=== PATIENT | female | born 1950 | race Caucasian/White ===

== ENCOUNTER 2022-06-16 16:57 | Emergency (ER) | payer MEDICARE, SELFPAY ==
[2022-06-16 17:08] VITALS: BP 88/53; PULSE 97; RESP 18; TEMP 37; O2SAT 100
--- NOTE | 2022-06-16 17:25 | ED.URI ---
HPI - URI/Sore Throat General Chief Complaint: Upper Respiratory Infection Stated Complaint: Congestion/Body Aches Time Seen by Provider: 06/16/22 17:25 Source: patient and RN notes reviewed History of Present Illness HPI Narrative: Patient is 71-year-old female who presents the urgent care with her spouse with complaints of congestion, body aches, cough, chills. Patient states that started Thursday and she has been taking flu medication and Vicks [id number]. Patient denies any fever, nausea or vomiting. Patient states that she has had COVID in the past and COVID is not her concern at this time. No other acute complaints. No acute distress noted. Patient and spouse aware of the plan of care. Some parts of this dictation were generated by voice recognition software and may contain typographical and/or grammatical inaccuracies. Related Data Home Medications Medication Instructions Recorded Confirmed ezetimibe 10 mg tablet mg 06/16/22 hydrochlorothiazide 12.5 mg capsule mg 06/16/22 lisinopril 20 mg tablet mg 06/16/22 metoprolol succinate 25 mg mg PO 06/16/22 tablet,extended release 24 hr omeprazole 20 mg capsule,delayed mg 06/16/22 release rosuvastatin 40 mg tablet mg 06/16/22 ticagrelor 90 mg tablet (Brilinta) mg 06/16/22 Allergies Allergy/AdvReac Type Severity Reaction Status Date / Time codeine AdvReac Nausea and Verified 03/23/13 12:41 Vomiting Review of Systems Review of Systems: CONSTITUTIONAL: Reports of chills and fatigue EYES: Denies visual changes, redness, or discharge. ENT: Reports of sinus congestion and postnasal drainage CARDIOVASCULAR: Denies chest pain, palpitations, or edema. RESPIRATORY: Reports of cough without dyspnea GASTROINTESTINAL: Denies abdominal pain, nausea, vomiting, or diarrhea. GENITOURINARY: Denies dysuria or hematuria. SKIN: Denies rash or itching. MUSCULOSKELETAL: Denies back pain, joint pain. Reports of body aches NEUROLOGIC: Denies headache, numbness, or weakness. All other systems reviewed are negative, except as documented in HPI. PMFSH Comments At the time of my signature, I reviewed and agree with the nursing past medical, surgical, social, and family history. There is no relevant family history pertinent to the patient complaint. Exam Narrative: GENERAL: This is a well-nourished, well-developed patient. Appears fatigued HEAD: normocephalic, atraumatic. EYES: PERRL. Sclera clear/white. Vision is grossly intact. EARS: External ears normal, auditory canals clear and without drainage, TMs normal without perforation. Hearing grossly intact. NOSE: External nose normal with no obvious nasal discharge, nares without redness, clear rhinorrhea. THROAT: Mucous membranes moist, posterior pharynx clear. Moderate postnasal drainage NECK: Neck supple, non-tender without lymphadenopathy, masses or thyromegaly. CARDIOVASCULAR: Regular rate and rhythm RESPIRATORY: Clear to auscultation. Breath sounds equal bilaterally. No wheezes, rales, or rhonchi. SKIN: warm, intact with no suspicious lesions or rash, good texture and turgor. NEURO: awake, alert, and oriented to person, place and time. There were no obvious focal neurologic abnormalities. EXTREMITIES: No clubbing, cyanosis, or edema. Course Course Level of Care: Express Care Visit Vital Signs Vital signs: Vital Signs Temperature 98.6 F 06/16/22 17:08 Pulse Rate 97 06/16/22 17:08 Respiratory Rate 18 06/16/22 17:08 Blood Pressure 88/53 L 06/16/22 17:08 Pulse Oximetry 100 06/16/22 17:08 Oxygen Delivery Room Air 06/16/22 17:08 Temperature 98.6 F 06/16/22 17:31 Pulse Rate 97 06/16/22 17:31 Respiratory Rate 18 06/16/22 17:31 Blood Pressure 88/53 L 06/16/22 17:31 Pulse Oximetry 100 06/16/22 17:31 Oxygen Delivery Room Air 06/16/22 17:31 Reviewed MDM - URI/Sore Throat MDM Narrative Medical decision making narrative: Reviewed lab results with the patient. She is
[2022-06-16 17:31] VITALS: BP 88/53; PULSE 97; RESP 18; TEMP 37; O2SAT 100
== END 2022-06-16 17:50 | disposition home or self-care (01) ==
PROVIDERS: Emergency Provider Nurse Practitioner Family; PCP Internal Medicine
DX: J40 Bronchitis, not specified as acute or chronic (principal); B34.9 Viral infection, unspecified; I25.10 Atherosclerotic heart disease of native coronary artery without angina pectoris; E78.00 Pure hypercholesterolemia, unspecified; I10 Essential (primary) hypertension; K21.9 Gastro-esophageal reflux disease without esophagitis; M81.0 Age-related osteoporosis without current pathological fracture; Z86.16 Personal history of COVID-19; Z95.5 Presence of coronary angioplasty implant and graft
CPT/HCPCS: 87804; 99203; G0463

== ENCOUNTER 2022-07-07 15:47 | Emergency (ER) | payer MEDICARE, SELFPAY ==
[2022-07-07 15:56] VITALS: BP 118/68; PULSE 90; RESP 16; TEMP 36.8; O2SAT 99
--- NOTE | 2022-07-07 15:56 | ED.URI ---
HPI - URI/Sore Throat General Chief Complaint: Upper Respiratory Infection Stated Complaint: Chest Congestion Time Seen by Provider: 07/07/22 15:57 Source: patient and RN notes reviewed History of Present Illness HPI Narrative: Patient is a 71-year-old female who presents to Urgent Care with her with complaints of chest congestion cough. Patient states that it started on Thursday and she has felt much better the last day or 2. Patient states she had a lot of fatigue out . Was mainly concerned about her angioplasty coming up on . 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 Denies any fevers, nausea or vomiting. Denies any shortness of breath or chest pain. Patient is not taking anything but Tylenol [id number]. No other acute complaints. No acute distress noted. Patient aware of the plan of care. Some parts of this dictation were generated by voice recognition software and may contain typographical and/or grammatical inaccuracies. Related Data Home Medications Medication Instructions Recorded Confirmed ezetimibe 10 mg tablet 10 mg PO DAILY 06/16/22 07/07/22 hydrochlorothiazide 12.5 mg capsule 12.5 mg PO DAILY 06/16/22 07/07/22 lisinopril 20 mg tablet 20 mg PO DAILY 06/16/22 07/07/22 metoprolol succinate 25 mg 25 mg PO DAILY 06/16/22 07/07/22 tablet,extended release 24 hr omeprazole 20 mg capsule,delayed 20 mg PO DAILY 06/16/22 07/07/22 release rosuvastatin 40 mg tablet 40 mg PO DAILY 06/16/22 07/07/22 ticagrelor 90 mg tablet (Brilinta) 90 mg PO BID 06/16/22 07/07/22 Allergies Allergy/AdvReac Type Severity Reaction Status Date / Time codeine AdvReac Nausea and Verified 07/07/22 16:16 Vomiting Review of Systems Review of Systems: CONSTITUTIONAL: Denies fever, chills, or sweats. EYES: Denies visual changes, redness, or discharge. ENT: Denies rhinorrhea, congestion, sore throat, or otalgia. CARDIOVASCULAR: Denies chest pain, palpitations, or edema. RESPIRATORY: Reports mild chest congestion without dyspnea GASTROINTESTINAL: Denies abdominal pain, nausea, vomiting, or diarrhea. GENITOURINARY: Denies dysuria or hematuria. SKIN: Denies rash or itching. MUSCULOSKELETAL: Denies back pain, joint pain, or myalgia. NEUROLOGIC: Denies headache, numbness, or weakness. All other systems reviewed are negative, except as documented in HPI. PMFSH Comments At the time of my signature, I reviewed and agree with the nursing past medical, surgical, social, and family history. There is no relevant family history pertinent to the patient complaint. Exam Narrative: GENERAL: This is a well-nourished, well-developed patient, in no apparent distress. HEAD: normocephalic, atraumatic. EYES: PERRL. Sclera clear/white. Vision is grossly intact. EARS: External ears normal, auditory canals clear and without drainage, TMs normal without perforation. Hearing grossly intact. NOSE: External nose normal with no obvious nasal discharge, nares without redness, clear rhinorrhea. THROAT: Mucous membranes moist, posterior pharynx clear. mild postnasal drainage NECK: Neck supple CARDIOVASCULAR: Regular rate RESPIRATORY: Clear to auscultation. Breath sounds equal bilaterally. No wheezes, rales, or rhonchi. SKIN: warm, intact with no suspicious lesions or rash, good texture and turgor. NEURO: awake, alert, and oriented to person, place and time. There were no obvious focal neurologic abnormalities. EXTREMITIES: No clubbing, cyanosis, or edema. Course Course Level of Care: Express Care Visit Vital Signs Vital signs: Vital Signs Temperature 98.3 F 07/07/22 15:56 Pulse Rate 90 07/07/22 15:56 Respiratory Rate 16 07/07/22 15:56 Blood Pressure 118/68 07/07/22 15:56 Pulse Oximetry 99 07/07/22 15:56 Oxygen Delivery Room Air 07/07/22 15:56 Temperature 98.3 F 07/07/22 15:56 Pulse Rate 90 07/07/22 15:56 Respiratory Rate 16 07/07/22 15:56 Blood Pressure 118/68
== END 2022-07-07 16:38 | disposition home or self-care (01) ==
PROVIDERS: Emergency Provider Nurse Practitioner Family; PCP Internal Medicine
DX: R05.9 Cough, unspecified (principal); Z20.822 Contact with and (suspected) exposure to COVID-19; I25.10 Atherosclerotic heart disease of native coronary artery without angina pectoris; Z95.5 Presence of coronary angioplasty implant and graft; E78.00 Pure hypercholesterolemia, unspecified; I10 Essential (primary) hypertension; Z86.16 Personal history of COVID-19; M81.0 Age-related osteoporosis without current pathological fracture
CPT/HCPCS: 87426; 87804; 99213; C9803; G0463

== ENCOUNTER 2022-12-05 19:04 | Emergency (ER) | payer MEDICARE, SELFPAY ==
--- NOTE | ~2022-12-05 | XR_ITS ---
EXAMINATION: XR chest 2V DATE: 12/05/2022 19:40 INDICATION: Shortness of breath and congestion TECHNIQUE: PA and lateral views of the chest are obtained. COMPARISON: None available FINDINGS: The lungs are free of acute opacities. No pleural effusion or pneumothorax. The cardiomedia stinal silhouette is normal. There is moderate thoracic spondylosis. An endoluminal stent is noted in the aortic arch and proximal descending aorta. IMPRESSION: 1. No acute cardiopulmonary abnormality. Reviewed, dictated and finalized at location F.
[2022-12-05 19:11] VITALS: BP 94/50; PULSE 64; RESP 16; TEMP 36.6; O2SAT 97
--- NOTE | 2022-12-05 19:26 | ED.URI ---
HPI - URI/Sore Throat General Chief Complaint: Upper Respiratory Infection Stated Complaint: Chest Congestion Time Seen by Provider: 12/05/22 19:26 Source: patient, RN notes reviewed and old records reviewed Mode of arrival: ambulatory Limitations: no limitations History of Present Illness HPI Narrative: 72 year old female who presents to [facility] care with complaints of chest congestion, cough, nasal congestion for the past 3-4 days with increase chest congestion since last night. Patient reports that she has had some shortness of breath which she noted last night when she laid down.Patient reports that she has taken Robitussin and Benadryl for her symptoms. Patient reports that she does not have any sore throat pain or ear pain. MD elicited complaint: cough, rhinorrhea and nasal congestion Onset (ago): day(s) (3-4 days) Able to tolerate fluids by mouth: Yes Treatments prior to arrival: other (Benadryl and Robitussin) Related Data Home Medications Medication Instructions Recorded Confirmed ezetimibe 10 mg tablet 10 mg PO DAILY 06/16/22 12/05/22 hydrochlorothiazide 12.5 mg capsule 12.5 mg PO DAILY 06/16/22 12/05/22 lisinopril 20 mg tablet 20 mg PO DAILY 06/16/22 12/05/22 metoprolol succinate 25 mg 25 mg PO DAILY 06/16/22 12/05/22 tablet,extended release 24 hr omeprazole 20 mg capsule,delayed 20 mg PO DAILY 06/16/22 12/05/22 release rosuvastatin 40 mg tablet 40 mg PO DAILY 06/16/22 12/05/22 ticagrelor 90 mg tablet (Brilinta) 90 mg PO BID 06/16/22 12/05/22 Allergies Allergy/AdvReac Type Severity Reaction Status Date / Time codeine AdvReac Nausea and Verified 12/05/22 19:51 Vomiting Review of Systems Review of Systems: CONSTITUTIONAL: Denies malaise, chills, sweats, or fever. EYES: Denies visual changes, redness, or discharge. ENT: Reports rhinorrhea, congestion, sinus pain, no otalgia no sore throat. CARDIOVASCULAR: Denies chest pain, palpitations, or edema. RESPIRATORY: Reports cough.? Some dyspnea. GASTROINTESTINAL: Denies abdominal pain, nausea, vomiting, diarrhea SKIN: Denies rash or itching. MUSCULOSKELETAL: reports some myalgia. NEUROLOGIC: Denies headache. All systems reviewed & are unremarkable except as noted in HPI and below PMFSH Past Medical History Medical History (Updated 12/07/22 @ 15:17 by Cele Leon NP) Elevated cholesterol GERD (gastroesophageal reflux disease) Hypertension Osteoporosis Surgical History Surgical History (Updated 12/07/22 @ 15:21 by Cele Leon NP) H/O cardiac catheterization stent History of angioplasty of leg vessels S/P aortic aneurysm repair aortic aneurysm off of heart Social History Social History (Updated 12/05/22 @ 19:55 by Cele Leon NP) Smoking packs per day: 1 Smoking cigarettes per day: 20.0 Years smoked: 30 Smoking pack-years: 30.00 Smoking status: Former smoker Tobacco type: cigarettes Additional smoking assessment comments: quit 2011 Alcohol intake: current Alcohol use details: rare use Substance use type: does not use Living arrangements: with family Gender identity (if verbalized by the patient): Female Comments At time of signature, agree with nursing past medical, surgical, social and family history. There is no relevant family history pertinent to the presenting complaint Exam Narrative: GENERAL: Well-appearing, well-nourished, and in no acute distress. HEAD: Normocephalic EYES: PERRLA, conjunctivae clear ENT: Nares clear, turbinates edematous and erythematous, clear discharge. Mucous membranes moist. TM pearly maurice with dull light reflex bilaterally; no tragal tenderness. Oropharynx erythematous without lesions. Tonsils not enlarged and without exudate, no drooling, no hoarseness, no trismus, uvula midline. NECK: Supple. No lymphadenopathy CHEST: scattered wheezing on auscultation, breath sounds equal.positive wheezing, no rhonchi, rales, or stridor. No respira
== END 2022-12-05 20:30 | disposition home or self-care (01) ==
PROVIDERS: Emergency Provider Registered Nurse; PCP Internal Medicine
DX: J40 Bronchitis, not specified as acute or chronic (principal); I10 Essential (primary) hypertension; Z87.891 Personal history of nicotine dependence
CPT/HCPCS: 71046; 99213; G0463

== ENCOUNTER 2022-12-13 19:28 | Emergency (ER) | payer MEDICARE, SELFPAY ==
[2022-12-13] VITALS (8 sets, daily range): BP systolic 60–112; BP diastolic 40–79; PULSE 60–96; RESP 20; TEMP 37.1; O2SAT 100
--- NOTE | 2022-12-13 19:46 | ED.GENADULT ---
HPI - General Adult General Chief complaint: Unspecified Stated complaint: chest / headache / low BP Time Seen by Provider: 12/13/22 19:46 History of Present Illness HPI narrative: patient here for evaluation of blood pressure. reports low blood pressure at home. repors 40's over the 50's. patient was evaluated by her primary care thursday and her HCTZ was discontinued due to low blood pressure. Patient states she felt woozy earlier in the day but feels much better now. blood pressure 112/79 pulse 74 and regular. Patient denies any chest pain no shortness of breath and no dizziness. Patient reports normal appetite and activity. Related Data Home Medications Medication Instructions Recorded Confirmed ezetimibe 10 mg tablet 10 mg PO DAILY 06/16/22 12/13/22 hydrochlorothiazide 12.5 mg capsule 12.5 mg PO DAILY 06/16/22 12/13/22 lisinopril 20 mg tablet 20 mg PO DAILY 06/16/22 12/13/22 metoprolol succinate 25 mg 25 mg PO DAILY 06/16/22 12/13/22 tablet,extended release 24 hr omeprazole 20 mg capsule,delayed 20 mg PO DAILY 06/16/22 12/13/22 release rosuvastatin 40 mg tablet 40 mg PO DAILY 06/16/22 12/13/22 ticagrelor 90 mg tablet (Brilinta) 90 mg PO BID 06/16/22 12/13/22 Allergies Allergy/AdvReac Type Severity Reaction Status Date / Time codeine AdvReac Nausea and Verified 12/13/22 19:40 Vomiting Review of Systems Review of Systems: CONSTITUTIONAL: Denies fever, chills, or sweats. EYES: Denies visual changes, redness, or discharge. ENT: Denies rhinorrhea, congestion, sore throat, or otalgia. CARDIOVASCULAR: Denies chest pain, palpitations, or edema. RESPIRATORY: Denies cough or dyspnea. GASTROINTESTINAL: Denies abdominal pain, nausea, vomiting, or diarrhea. GENITOURINARY: Denies dysuria or hematuria. SKIN: Denies rash or itching. MUSCULOSKELETAL: Denies back pain, joint pain, or myalgia. NEUROLOGIC: Denies headache, numbness, or weakness. PSYCHIATRIC: Denies anxiety or depression. [facility] Past Medical History Medical History (Updated 12/13/22 @ 20:08 by SAMANTHA Butts) Elevated cholesterol GERD (gastroesophageal reflux disease) Hypertension Osteoporosis Surgical History Surgical History (Updated 12/07/22 @ 15:21 by Cele Leon NP) H/O cardiac catheterization stent History of angioplasty of leg vessels S/P aortic aneurysm repair aortic aneurysm off of heart Social History Social History (Updated 12/05/22 @ 19:55 by Cele Leon NP) Smoking packs per day: 1 Smoking cigarettes per day: 20.0 Years smoked: 30 Smoking pack-years: 30.00 Smoking status: Former smoker Tobacco type: cigarettes Additional smoking assessment comments: quit 2011 Alcohol intake: current Alcohol use details: rare use Substance use type: does not use Living arrangements: with family Gender identity (if verbalized by the patient): Female Comments At time of signature, agree with nursing past medical, surgical, social and family history. There is no relevant family history pertinent to the presenting complaint Exam Narrative: GENERAL: Well-appearing, well-nourished, and in no acute distress. HEAD: Normocephalic, atraumatic. EYES: PERRLA and EOMI. ENT: Nares clear, no rhinorrhea or epistaxis. Mucous membranes moist. NECK: Supple. CHEST: Clear to auscultation. No respiratory distress. HEART: Regular rate and rhythm. No murmur heard. Normal peripheral pulses. ABDOMEN: Soft, nontender, nondistended, normal active bowel sounds. EXTREMITIES: Normal range of motion. No edema. SKIN: Warm, dry, no rash. NEURO: No focal deficits. Alert and oriented x3. [place] Coma Scale Eye Opening: Spontaneous 4 [place] Coma Scale Motor: Obeys Commands 6 [place] Coma Scale Verbal: Oriented 5 [place] Coma Scale Total 15 Course Course Level of Care: Express Care Visit Vital Signs Vital signs: Vital Signs Temperature 37.1 C 12/13/22 19:32 Pulse Rate 74 12/13/22 1
== END 2022-12-13 20:14 | disposition short-term general hospital (02) ==
PROVIDERS: Emergency Provider Nurse Practitioner Family; PCP Internal Medicine
DX: I95.1 Orthostatic hypotension (principal); R42 Dizziness and giddiness; Z87.891 Personal history of nicotine dependence; E78.00 Pure hypercholesterolemia, unspecified; K21.9 Gastro-esophageal reflux disease without esophagitis; M81.0 Age-related osteoporosis without current pathological fracture
CPT/HCPCS: 99212; G0463

== ENCOUNTER 2023-01-15 14:49 | Emergency (ER) | payer MEDICARE, SELFPAY ==
--- NOTE | 2023-01-15 14:51 | ED.FEMALEGU ---
HPI - Female Genitourinary General Chief complaint: Urogenital-Female Stated complaint: poss uti Time Seen by Provider: 01/15/23 14:51 Source: patient and RN notes reviewed History of Present Illness HPI Narrative: Patient is a 72-year-old female who presents to urgent care with complaints of urinary frequency, urgency and dysuria since yesterday. Patient states she has been seen a neurologist due to blood in the urine and december. Patient took Macrobid from her urologist and december. States that she had a CT that was negative. Patient denies any low back pain, abdominal pain, nausea, vomiting or fever. No other acute complaints. No acute distress noted. Patient aware of the plan care. Some parts of this dictation were generated by voice recognition software and may contain typographical and/or grammatical inaccuracies. Related Data Home Medications Medication Instructions Recorded Confirmed ezetimibe 10 mg tablet 10 mg PO DAILY 06/16/22 12/13/22 hydrochlorothiazide 12.5 mg capsule 12.5 mg PO DAILY 06/16/22 12/13/22 lisinopril 20 mg tablet 20 mg PO DAILY 06/16/22 12/13/22 metoprolol succinate 25 mg 25 mg PO DAILY 06/16/22 12/13/22 tablet,extended release 24 hr omeprazole 20 mg capsule,delayed 20 mg PO DAILY 06/16/22 12/13/22 release rosuvastatin 40 mg tablet 40 mg PO DAILY 06/16/22 12/13/22 ticagrelor 90 mg tablet (Brilinta) 90 mg PO BID 06/16/22 12/13/22 amiodarone 200 mg tablet mg 01/15/23 rivaroxaban 20 mg tablet (Xarelto) mg 01/15/23 Allergies Allergy/AdvReac Type Severity Reaction Status Date / Time codeine AdvReac Nausea and Verified 12/13/22 19:40 Vomiting Review of Systems Review of Systems: CONSTITUTIONAL: Denies fever, chills, or sweats. EYES: Denies visual changes, redness, or discharge. ENT: Denies rhinorrhea, congestion, sore throat, or otalgia. CARDIOVASCULAR: Denies chest pain, palpitations, or edema. RESPIRATORY: Denies cough or dyspnea. GASTROINTESTINAL: Denies abdominal pain, nausea, vomiting, or diarrhea. GENITOURINARY: Reports urinary frequency, urgency and dysuria SKIN: Denies rash or itching. MUSCULOSKELETAL: Denies back pain, joint pain, or myalgia. NEUROLOGIC: Denies headache, numbness, or weakness. All other systems reviewed are negative, except as documented in HPI. [facility] Past Medical History Medical History (Updated 01/15/23 @ 15:29 by SAMANTHA Hi) Elevated cholesterol GERD (gastroesophageal reflux disease) Hypertension Osteoporosis Surgical History Surgical History (Updated 12/07/22 @ 15:21 by Cele Leon NP) H/O cardiac catheterization stent History of angioplasty of leg vessels S/P aortic aneurysm repair aortic aneurysm off of heart Social History Social History (Updated 12/05/22 @ 19:55 by Cele Leon NP) Smoking packs per day: 1 Smoking cigarettes per day: 20.0 Years smoked: 30 Smoking pack-years: 30.00 Smoking status: Former smoker Tobacco type: cigarettes Additional smoking assessment comments: quit 2011 Alcohol intake: current Alcohol use details: rare use Substance use type: does not use Living arrangements: with family Gender identity (if verbalized by the patient): Female Comments At the time of my signature, I reviewed and agree with the nursing past medical, surgical, social, and family history. There is no relevant family history pertinent to the patient complaint. Exam Narrative: GENERAL: This is a well-nourished, well-developed patient, in no apparent distress. HEAD: normocephalic, atraumatic. EYES: PERRL. Sclera clear/white. Vision is grossly intact. EARS: External ears normal NOSE: External nose normal with no obvious nasal discharge, nares without redness, no rhinorrhea. THROAT: Mucous membranes moist NECK: Neck supple GASTROINTESTINAL: Abdomen soft, non-tender, nondistended. Bowel sounds are active. No guarding. SKIN: warm, intact with no suspicious lesions or rash, good text
[2023-01-15 14:54] VITALS: BP 177/89; PULSE 60; RESP 20; TEMP 36.5; O2SAT 98
== END 2023-01-15 15:35 | disposition home or self-care (01) ==
PROVIDERS: Emergency Provider Nurse Practitioner Family; PCP Internal Medicine
DX: N39.0 Urinary tract infection, site not specified (principal); Z87.891 Personal history of nicotine dependence; E78.00 Pure hypercholesterolemia, unspecified; K21.9 Gastro-esophageal reflux disease without esophagitis; I10 Essential (primary) hypertension; M81.0 Age-related osteoporosis without current pathological fracture
CPT/HCPCS: 81003; 87086; 87088; 99213; G0463

== ENCOUNTER → 2023-06-03 10:09 | Outpatient (CLI) | payer MEDICARE, SELFPAY ==
--- NOTE | ~2023-06-03 | CT_ITS ---
CT of the Abdomen and Pelvis: Indication: Abdominal pain and bloating Technique: 2.5 mm axial scans were obtained through the abdomen and pelvis following intravenous adm inistration of 100 cc of Omnipaque 350. Dose reduction technique was used on this scan by utilizing a utomated exposure control and iterative reconstruction technique. The dose-length product (DLP) was 5 40.05 mGy-cm. Findings: Scans through the lung bases are unremarkable. The liver, spleen, pancreas, gallbladder, adrenals and kidneys are within normal limits. There are at herosclerotic calcifications of the aorta. No lymphadenopathy. No bowel obstruction evident. Possible mild wall thickening at the proximal to mid sigmoid colon. No abscess or free air. Images through the pelvis were performed. Urinary bladder unremarkable. No adnexal mass evident. No a scites. Impression: Possible mild wall thickening proximal to mid sigmoid colon, nonspecific. Consider focal colitis or m inimal diverticulitis. Early neoplasm not completely excluded, though felt to be relatively less like ly. Consider colonoscopy as indicated. Reviewed, dictated and finalized at location M. Impression: Possible mild wall thickening proximal to mid sigmoid colon, nonspecific. Consi kelsie focal colitis or minimal diverticulitis. Early neoplasm not completely excl uded, though felt to be relatively less likely. Consider colonoscopy as indicat ed.
[2023-06-03 11:32] LABS: Estimated Glomerular Filt Rate > 60
== END ==
PROVIDERS: PCP Internal Medicine; Visit Provider Nurse Practitioner Family
DX: R19.5 Other fecal abnormalities (principal)
CPT/HCPCS: 74177; Q9967